=== PATIENT | female | born 1995 | race Caucasian/White ===

== ENCOUNTER 2020-09-15 22:35 | Emergency (ER) | payer OTHER ==
[~2020-09-15] VITALS: Ht 162.6 cm; Wt 63.5 kg
[2020-09-15 22:43] VITALS: Ht 162.6 cm; Wt 63.5 kg
[2020-09-15 23:46] LABS: BASOPHIL % 0.4 % (0-2); PLATELET COUNT 188 x10^3mcL (130-400); RED CELL DISTRIBUTION WIDTH 13.6 % (11.5-14.5)
[2020-09-16 00:03] LABS: AMPHETAMINE QUAL UR NONE DETECTED (See below)
[2020-09-16 00:14] LABS: CARBON DIOXIDE 22.9 mmol/L (21-32); CHLORIDE SERUM 108 mmol/L (98-107); CREATININE SERUM 0.4 mg/dL (0.6-1.0); GFR1 > 60 mL/min; GLUCOSE SERUM 105 mg/dL (74-106); POTASSIUM SERUM 3.6 mmol/L (3.5-5.1); SODIUM SERUM 140 mmol/L (136-145)
[2020-09-16 00:47] LABS: ALBUMIN 3.3 g/dL (3.4-5.0); ALKALINE PHOSPHATASE 163 U/L (46-116); ALT/SGPT 16 U/L (14-59); AST/SGOT 10 U/L (15-37); BILIRUBIN TOTAL 0.3 mg/dL (0.20-1.00); CALCIUM 8.3 mg/dL (8.5-10.1); TOTAL PROTEIN, SERUM 6.8 g/dL (6.4-8.2)
[2020-09-16 00:48] LABS: FREE T4 0.26 ng/dL (0.76-1.46)
[2020-09-16] MEDS ORDERED: PROPYLTHIOURACI50 MG PO (01:27)
[2020-09-16 02:35] LABS: UA SPECIFIC GRAVITY >=1.030 (1.005-1.035); microscopic required? YES; urine erythrocyte NEGATIVE (NEGATIVE)
[2020-09-16 09:18] VITALS: BP 152/72
== END 2020-09-16 09:43 | disposition short-term general hospital (02) ==
LOC: ED 22:35
PROVIDERS: Emergency Medicine
DX: E05.91 Thyrotoxicosis, unspecified with thyrotoxic crisis or storm (principal); Z20.828 Contact with and (suspected) exposure to other viral communicable diseases
CPT/HCPCS: 84439; G0480; J0696; J2060; J7030; Q0092

== ENCOUNTER 2020-09-15 22:35 | Emergency (ER) | payer OTHER ==
[2020-09-16] MEDS ORDERED: PROPYLTHIOURACI50 MG PO (01:27)
== END 2020-09-16 09:15 | disposition short-term general hospital (02) ==
LOC: ED 22:35
DX: Z02.89 Encounter for other administrative examinations (principal)
CPT/HCPCS: J7030; J7060